=== PATIENT | male | born 1970 | race Caucasian/White ===

== ENCOUNTER 2020-03-20 22:37 | Emergency (ER) | payer OTHER ==
[~2020-03-20] VITALS: Ht 193 cm; Wt 133.2 kg
[2020-03-20] MEDS ORDERED: ondansetron/PF 4mg/2ml inj IV ONE (22:55)
[2020-03-20] MEDS ORDERED: LORazepam 2 mg/ml vial IV ONE ×3 (22:55→23:55)
[2020-03-20] MEDS ORDERED: morphine 4 MG/ML inj SYRINge IV ONE (22:55)
[2020-03-20] MEDS ORDERED: aspirin 81mg tab.chew PO ONE (22:55)
[2020-03-20] MEDS ORDERED: fentaNYL/PF 50MCG/1 ML 2ML syringe IV ONE ×2 (23:00→23:55)
[2020-03-20 23:19] LABS: BASOPHILS # (AUTO) 0.1 X10'3 (0-0.2); BASOPHILS % (AUTO) 1.2 % (0-1); EOSINOPHILS # (AUTO) 0.4 X10'3 (0-0.9); HEMATOCRIT 39.3 % (42.0-52.0); HEMOGLOBIN 13.7 g/dl (14.0-17.9); LYMPHOCYTES # (AUTO) 2.3 X10'3 (1.1-4.8); LYMPHOCYTES % (AUTO) 23.1 % (21-51); MEAN CORPUSCULAR HEMOGLOBIN 29.4 PG (27.0-31.0); MEAN CORPUSCULAR VOLUME 84.1 FL (78-98); MEAN PLATELET VOLUME 7.3 FL (7.4-10.4); MONOCYTES # (AUTO) 0.8 X10'3 (0-0.9); NEUTROPHILS # (AUTO) 6.2 X10'3 (1.8-7.7); NEUTROPHILS % (AUTO) 63.7 % (42-75); PLATELET COUNT 276 X10'3 (140-440); RED BLOOD COUNT 4.67 X10'6 (4.70-6.10); RED CELL DISTRIBUTION WIDTH 13.8 % (11.5-14.5); WHITE BLOOD COUNT 9.8 X10'3 (4.5-11.0)
[2020-03-20] MEDS ORDERED: orphenadrine citrate 60mg/2ml inj. IM ONE (23:20)
[2020-03-20 23:24] LABS: ALANINE AMINOTRANSFERASE 37 U/L (12-78); ALBUMIN 3.9 G/DL (3.4-5.0); ALBUMIN/GLOBULIN RATIO 0.8 (1.1-1.5); ALKALINE PHOSPHATASE 122 IU/L (46-116); ANION GAP 15 (8-16); ASPARTATE AMINO TRANSFERASE 19 U/L (10-37); BILIRUBIN,TOTAL 0.2 MG/DL (0.1-1.0); BLOOD UREA NITROGEN 9 MG/DL (7-18); CALCIUM 9.4 MG/DL (8.5-10.1); CHLORIDE 99 MMOL/L (99-107); CREATININE 1.12 MG/DL (0.60-1.10); GLUCOSE 227 MG/DL (70-104); POTASSIUM 4.2 MMOL/L (3.5-5.1); SODIUM 139 MMOL/L (135-145); TOTAL PROTEIN 8.8 G/DL (6.4-8.2); eGFR 69 ML/MIN
[2020-03-20 23:30] LABS: MAGNESIUM 1.8 MG/DL (1.5-2.4)
[2020-03-20] MEDS ORDERED: normal saline 1000ml 1,000 ML IV ONE (23:30)
[2020-03-21] MEDS ORDERED: acetaminophen 325mg tablet PO ONE
[2020-03-21 00:15] VITALS: BP 158/92
[2020-03-21] MEDS ORDERED: metoclopramide 5 mg/ml inj IV ONE (00:30)
[2020-03-21] MEDS ORDERED: HYDROcodone/acetaminophen 10/325mg tab PO ONE (00:30)
[2020-03-21 00:38] LABS: CLARITY,URINE CLEAR (Clear); COLOR,URINE YELLOW (Yellow); GLUCOSE, URINE 100 mg/dl (Neg); KETONES,URINE NEGATIVE (Neg); LEUKOCYTE ESTERASE ,URINE NEGATIVE (Neg); NITRITES, URINE NEGATIVE (Neg); OCCULT BLOOD,URINE NEGATIVE (Neg); PH,URINE 6.5 (4.8-8.0); PROTEIN,URINE 30 mg/dl (Neg); UROBILINOGEN,URINE 0.2 E.U/dL (0.2-1.0)
[2020-03-21] MEDS ORDERED: fentaNYL/PF 50MCG/1 ML 2ML syringe IV ONE (00:40)
[2020-03-21 00:42] LABS: UA COLLECTION TYPE CLN CATCH MIDSTREAM
[2020-03-21 00:43] LABS: BACTERIA,URINE FEW /HPF (Neg); RBC,URINE NONE SEEN /HPF (0-2); SQUAMOUS EPITHELIAL CELL,UR FEW /LPF (FEW); WBC,URINE 0-4 /HPF (0-4)
[2020-03-21 00:48] LABS: URINE AMPHETAMINE SCREEN NEGATIVE (Neg); URINE BARBITUATE SCREEN NEGATIVE (Neg); URINE BENZODIAZEPINES SCREEN NEGATIVE (Neg); URINE CANNABINOID SCREEN POSITIVE (Neg); URINE COCAINE SCREEN NEGATIVE (Neg); URINE METHADONE SCREEN NEGATIVE (Neg); URINE OPIATE SCREEN POSITIVE (Neg); URINE PHENCYCLIDINE SCREEN NEGATIVE (Neg)
== END 2020-03-21 01:13 | disposition home or self-care (01) ==
LOC: ER 22:38
DX: M54.5 Low back pain (principal); I48.91 Unspecified atrial fibrillation; G89.29 Other chronic pain; F17.200 Nicotine dependence, unspecified, uncomplicated; R11.2 Nausea with vomiting, unspecified; Z88.8 Allergy status to other drugs, medicaments and biological substances
CPT/HCPCS: 36415; 71045; 80053; 80162; 80305; 81001; 83735; 83880; 84484; 85025; 85610; 93005; 96372; 96374; 96375; 96376; 99285; J2060; J2360; J2405; J2765; J3010; J7030